=== PATIENT | female | born 2005 | race Caucasian/White ===

== ENCOUNTER 2023-10-18 02:22 | Emergency (ER) | payer MEDICAID ==
[2023-10-18 02:37] VITALS: BP 124/77; O2SAT 100
--- NOTE | 2023-10-18 02:45 | ED Physician Documentation ---
PD HPI BACK PAIN - Stated complaint Stated Complaint: RT SIDE BACK PX - Chief complaint Chief Complaint: Abd Pain - History obtained from History obtained from: Patient - Additional information Additional information: HPI from patient. Patient complains of right upper paralumbar and right flank pain, gradual onset few hours [employer]. No inciting event. Patient had just gotten home from a local car show when the symptoms began. Pain waxes and wanes, described as sharp in quality. Patient says it feels similar to symptoms attributed to UTI/pyelonephritis in the past.No ameliorating factors. The pain is partially exacerbated with deep breath and (pleuritic component). Denies dysuria, urinary frequency. She says the urine is cloudy tonight. Review of Systems Cardiac: denies: Chest pain / pressure GI: denies: Abdominal Pain, Nausea, Vomiting : denies: Dysuria, Frequency PD PAST MEDICAL HISTORY - Past Medical History Past Medical History: Yes Endocrine/Autoimmune: Type 1 diabetes - Past Surgical History Past Surgical History: Yes HEENT: Other - Present Medications Home Medications: Ambulatory Orders Medication Instructions Recorded Confirmed Insulin Lispro [Humalog] See Rx Instructions .ROUTE 10/18/23 10/18/23 .COMPLEX PRN cephALEXin [Keflex] 500 mg PO Q6H #28 cap 10/18/23 - Allergies Allergies/Adverse Reactions: Allergies Allergy/AdvReac Type Severity Reaction Status Date / Time No Known Drug Allergies Allergy Verified 10/18/23 02:34 - Social History Does the pt smoke?: No Smoking Status: Never smoker Does the pt drink ETOH?: No Does the pt have substance abuse?: No - Immunizations Immunizations are current?: Yes - POLST Patient has POLST: No PD ED PE NORMAL - Vitals Vital signs reviewed: Yes - General General: Alert and oriented X 3, No acute distress, Well developed/nourished - Abdomen Abdomen: Soft, Non tender - Back Back: Other (mild right CVAT) Results - Vitals Vitals: Vital Signs - 24 hr 10/18/23 02:25 Temperature 36.9 C Heart Rate 88 Respiratory 16 Rate Blood Pressure 124/77 O2 Saturation 100 Oxygen O2 Source Room air - Labs Labs: Laboratory Tests 10/18/23 10/18/23 02:50 02:50 Urine Color YELLOW Urine Clarity HAZY Urine pH 6.0 Ur Specific [place] 1.025 Urine Protein NEGATIVE Urine Glucose (UA) >=1000 H Urine Ketones NEGATIVE Urine Occult Blood TRACE-INTA Urine Nitrite POSITIVE H Urine Bilirubin NEGATIVE Urine Urobilinogen 0.2 (NORMAL) Ur Leukocyte Esterase NEGATIVE Urine RBC 6-10 H Urine WBC 11-25 H Ur Squamous Epith Cells MOD Squamous H Urine Bacteria Moderate H Ur Microscopic Review INDICATED Urine Culture Comments NOT INDICATED Urine HCG, Qual NEGATIVE PD Medical Decision Making - ED course Complexity details: reviewed results, re-evaluated patient, considered differential, d/w patient ED course: UA c/w UTI. Given 500mg cephalexin PO and provided rx for QID cephalexin x 1 week. Return precautions reviewed. Squamous cells in the urine sample are precluding urine culture; I discussed this w/patient and asked that she provide another urine sample before d/c for purposes of culture, but that if she is unable to do so, it is reasonable to treat empirically without culture provided she follows return precautions stringently Departure - Departure Disposition: 01 Home, Self Care Clinical Impression: Urinary tract infection Condition: Good Instructions: ED UTI Cystitis Female Prescriptions: cephALEXin [Keflex] 500 mg PO Q6H #28 cap Comments: The results of your urinalysis are consistent with a urinary tract infection. You were given the first dose of an antibiotic (cephalexin) in the emergency department, and I have electronically submitted a prescription for a 1-week course of this antibiotic to the [facility] pharmacy in [place]. Discharge Date/Time: 10/18/23 03:58
[2023-10-18 02:59] LABS: BILIRUBIN,URINE NEGATIVE (NEGATIVE); GLUCOSE, URINE (UA) >=1000 mg/dL (NEGATIVE); KETONES,URINE (UA) NEGATIVE (NEGATIVE); LEUKOCYTE ESTERASE, URINE NEGATIVE (NEGATIVE); NITRITE,URINE POSITIVE (NEGATIVE); OCCULT BLOOD,URINE TRACE-INTA (NEGATIVE); PROTEIN,URINE NEGATIVE (NEGATIVE); UROBILINOGEN,URINE 0.2 (NORMAL) E.U./dL (NORMAL)
[2023-10-18 03:11] LABS: CLARITY,URINE HAZY (CLEAR); HCG UR QUAL NEGATIVE
[2023-10-18 03:12] LABS: BACTERIA,URINE Moderate /HPF (None Seen); SQUAMOUS EPITHELIAL CELL,UR MOD Squamous (<= Few)
[2023-10-18] MEDS: cephALEXin 250 MG CAPSULE PO STA (03:55)
== END 2023-10-18 03:58 | disposition home or self-care (01) ==
LOC: ED 02:22
DX: N39.0 Urinary tract infection, site not specified (principal)
CPT/HCPCS: 81001; 81025; 99283; A9270; 81003; 87086